=== PATIENT | female | born 1965 | race Caucasian/White ===

== ENCOUNTER 2021-05-19 08:51 | Outpatient (CLI) | payer MEDICARE, MEDICAID | END 2021-05-19 08:52 | disposition home or self-care (01) | LOC: CSHWCC 08:51 | PROVIDERS: ATTEND Nurse Practitioner Family | DX: K94.09 Other complications of colostomy (principal); G40.909 Epilepsy, unspecified, not intractable, without status epilepticus; E11.65 Type 2 diabetes mellitus with hyperglycemia; J45.909 Unspecified asthma, uncomplicated; I10 Essential (primary) hypertension | CPT/HCPCS: 97139; G0463; 99203 ==

== ENCOUNTER 2021-08-15 07:59 | Outpatient (CLI) | payer MEDICARE, MEDICAID | END 2021-08-15 08:00 | disposition home or self-care (01) | LOC: CSHWCC 07:59 | PROVIDERS: ATTEND Nurse Practitioner Family | DX: T81.89XD Other complications of procedures, not elsewhere classified, subsequent encounter (principal); L98.499 Non-pressure chronic ulcer of skin of other sites with unspecified severity; K94.09 Other complications of colostomy; G40.909 Epilepsy, unspecified, not intractable, without status epilepticus; J45.909 Unspecified asthma, uncomplicated; E11.65 Type 2 diabetes mellitus with hyperglycemia; I10 Essential (primary) hypertension; K31.6 Fistula of stomach and duodenum; Z85.038 Personal history of other malignant neoplasm of large intestine | CPT/HCPCS: 97139; G0463; 99213 ==

== ENCOUNTER 2021-08-29 07:45 | Outpatient (CLI) | payer MEDICARE, MEDICAID | END 2021-08-29 07:46 | disposition home or self-care (01) | LOC: CSHWCC 07:45 | PROVIDERS: ATTEND Nurse Practitioner Family | DX: T81.89XD Other complications of procedures, not elsewhere classified, subsequent encounter (principal); K94.09 Other complications of colostomy; E11.65 Type 2 diabetes mellitus with hyperglycemia; G40.909 Epilepsy, unspecified, not intractable, without status epilepticus; J45.909 Unspecified asthma, uncomplicated; L24.A2 Irritant contact dermatitis due to fecal, urinary or dual incontinence; K31.6 Fistula of stomach and duodenum; Z85.038 Personal history of other malignant neoplasm of large intestine | CPT/HCPCS: 97139; G0463; 99213 ==

== ENCOUNTER 2021-09-02 08:12 | Outpatient (CLI) | payer MEDICARE, MEDICAID | END 2021-09-02 08:13 | disposition home or self-care (01) | LOC: CSHWCC 08:12 | PROVIDERS: ATTEND Nurse Practitioner Family | DX: T81.89XD Other complications of procedures, not elsewhere classified, subsequent encounter (principal); K94.09 Other complications of colostomy; L24.A2 Irritant contact dermatitis due to fecal, urinary or dual incontinence; K31.6 Fistula of stomach and duodenum; E11.65 Type 2 diabetes mellitus with hyperglycemia; G40.909 Epilepsy, unspecified, not intractable, without status epilepticus; I10 Essential (primary) hypertension; J45.909 Unspecified asthma, uncomplicated; Z85.038 Personal history of other malignant neoplasm of large intestine; Z93.2 Ileostomy status | CPT/HCPCS: 99213; G0463 ==

== ENCOUNTER 2021-11-23 10:35 | Outpatient (CLI) | payer MEDICARE, MEDICAID | END 2021-11-23 10:36 | disposition home or self-care (01) | LOC: CSHWCC 10:35 | PROVIDERS: ATTEND Nurse Practitioner Family | DX: L24.A2 Irritant contact dermatitis due to fecal, urinary or dual incontinence (principal) | CPT/HCPCS: 97139; G0463; 99212 ==

== ENCOUNTER 2022-01-24 08:49 | Outpatient (CLI) | payer MEDICARE, OTHER | END 2022-01-24 08:50 | disposition home or self-care (01) | LOC: CSHWCC 08:49 | PROVIDERS: ATTEND Nurse Practitioner Family | DX: T81.89XD Other complications of procedures, not elsewhere classified, subsequent encounter (principal) | CPT/HCPCS: 99213; G0463 ==

== ENCOUNTER 2022-01-27 10:56 | Outpatient (CLI) | payer OTHER | END 2022-01-27 10:57 | disposition home or self-care (01) | LOC: CSHWCC 10:56 | PROVIDERS: ATTEND Nurse Practitioner Family | DX: T81.89XA Other complications of procedures, not elsewhere classified, initial encounter (principal) | CPT/HCPCS: 99212; G0463 ==

== ENCOUNTER 2022-02-14 10:03 | Outpatient (CLI) | payer OTHER, MEDICAID | END 2022-02-14 10:04 | disposition home or self-care (01) | LOC: CSHWCC 10:03 | PROVIDERS: ATTEND Nurse Practitioner Family | DX: T81.89XD Other complications of procedures, not elsewhere classified, subsequent encounter (principal) | CPT/HCPCS: 97139; G0463; 99213 ==

== ENCOUNTER 2022-02-16 12:25 | Emergency (ER) | payer MEDICARE, OTHER ==
[2022-02-16] MEDS ORDERED: Fentanyl 100 MCG/2 ML VIAL ONE (14:31)
== END 2022-02-16 15:14 | disposition home or self-care (01) ==
LOC: CSHERS 12:25
DX: S42.211A Unspecified displaced fracture of surgical neck of right humerus, initial encounter for closed fracture (principal); E11.9 Type 2 diabetes mellitus without complications; F17.210 Nicotine dependence, cigarettes, uncomplicated; G40.909 Epilepsy, unspecified, not intractable, without status epilepticus; W01.0XXA Fall on same level from slipping, tripping and stumbling without subsequent striking against object, initial encounter; Y93.01 Activity, walking, marching and hiking; Z85.038 Personal history of other malignant neoplasm of large intestine
CPT/HCPCS: 96372; J3010

== ENCOUNTER 2022-02-20 10:58 | Outpatient (CLI) | payer MEDICARE, OTHER | END 2022-02-20 10:59 | disposition home or self-care (01) | LOC: CSHWCC 10:58 | PROVIDERS: ATTEND Nurse Practitioner Family | DX: T81.89XD Other complications of procedures, not elsewhere classified, subsequent encounter (principal) | CPT/HCPCS: 99212; G0463 ==